=== PATIENT | male | born 1965 | race Caucasian/White ===

== ENCOUNTER → 2024-01-29 10:46 | Outpatient (REF) | payer OTHER, SELFPAY | LOC: RAD 10:46 | PROVIDERS: ATTENDING PHYSICIAN Nurse Practitioner Adult Health; FAMILY PHYSICIAN Family Medicine | DX: M79.675 Pain in left toe(s) (principal) | CPT/HCPCS: 73660 ==

== ENCOUNTER → 2024-06-02 09:39 | Outpatient (REF) | payer MEDICARE, SELFPAY ==
[2024-06-02 10:58] LABS: % Basophils 0.7 % (0-2); % Eosinophils 2.7 % (0-6); % Immature Granulocytes 0.5 % (0-0.5); % Lymphocytes 15.7 % (20.5-51.1); % Monocytes 5.3 % (1.7-9.3); % Neutrophils 75.1 % (42.2-75.2); Absolute Basophils 0.1 10^3/uL (0-0.2); Absolute Eosinophils 0.3 10^3/uL (0-0.7); Absolute Immature Granulocytes 0.1 10^3/uL (0-0.05); Absolute Lymphocytes 1.6 10^3/uL (1.2-3.4); Absolute Monocytes 0.6 10^3/uL (0.1-0.6); Absolute Neutrophils 7.9 10^3/uL (1.4-6.5); Hematocrit 43.3 % (39.0-52.0); Hemoglobin 14.7 g/dL (13.0-18.0); Mean Corp Hgb Conc. 33.9 g/dL (33.0-37.0); Mean Corpuscular Hgb 31.3 pg (27.0-31.0); Mean Corpuscular Volume 92.3 fL (80.0-94.0); Mean Platelet Volume 11.5 fL (7.4-10.4); Nucleated Red Blood Cells % 0 % (-); Platelet Count 172 10^3/uL (130-400); Red Blood Cell Count 4.69 10^6/uL (4.70-6.10); Red Cell Dist. Width 13.1 % (11.5-14.5); White Blood Cell Count 10.5 10^3/uL (4.8-10.8)
[2024-06-02 11:32] LABS: C-Reactive Protein < 5.00 mg/L (0.0-10.00)
[2024-06-02 12:05] LABS: PSA, Total - Screen 0.71 ng/ml (0.0-4.0); TSH 2.61 uIU/ml (0.47-4.68); TSH Reflex To Free T4 2.61 uIU/ml (0.47-4.68)
[2024-06-02 12:06] LABS: Calcium 9.3 mg/dl (8.4-10.2)
[2024-06-02 12:08] LABS: Ferritin 56.7 ng/ml (17.9-464.0)
[2024-06-02 12:30] LABS: Uric Acid 4.5 mg/dl (3.5-8.5)
[2024-06-02 12:45] LABS: Erythrocyte Sed Rate 4 mm/hour (0-20)
[2024-06-04 10:47] LABS: Intact PTH 65.6 pg/ml (13.6-85.8)
== END ==
LOC: REG 09:39
PROVIDERS: ATTENDING PHYSICIAN Physician Assistant; FAMILY PHYSICIAN Nurse Practitioner Family
DX: E03.9 Hypothyroidism, unspecified (principal); E20.9 Hypoparathyroidism, unspecified; M10.9 Gout, unspecified; M79.675 Pain in left toe(s); Z51.81 Encounter for therapeutic drug level monitoring; Z00.00 Encounter for general adult medical examination without abnormal findings; Z12.5 Encounter for screening for malignant neoplasm of prostate
CPT/HCPCS: 36415; 82728; 83970; 84443; 84550; 85025; 85652; 86140; G0103

== ENCOUNTER → 2024-12-05 15:07 | Outpatient (REF) | payer MEDICARE, SELFPAY ==
[2024-12-05 16:07] LABS: Hematocrit 44.9 % (39.0-52.0); Hemoglobin 15.6 g/dL (13.0-18.0); Mean Corp Hgb Conc. 34.7 g/dL (33.0-37.0); Mean Corpuscular Volume 89.8 fL (80.0-94.0); Nucleated Red Blood Cells % 0 % (-); Platelet Count 176 10^3/uL (130-400); Red Cell Dist. Width 12.7 % (11.5-14.5)
[2024-12-05 16:37] LABS: ALT (SGPT) 29 U/L (0-50); AST (SGOT) 22 U/L (17-59); Albumin 4.3 g/dl (3.5-5.0); Alkaline Phosphatase 89 U/L (38-126); Blood Urea Nitrogen 10 mg/dl (9-20); Calcium 8.8 mg/dl (8.4-10.2); Carbon Dioxide 27 mmol/L (22-30); Chloride 106 mmol/L (98-107); Glucose 89 mg/dl (70-99); Potassium 4.1 mmol/L (3.5-5.1); Sodium 141 mmol/L (135-145); Total Protein 6.9 g/dl (6.3-8.2); eGFR > 60.00
== END ==
LOC: RAD 15:07
PROVIDERS: ATTENDING PHYSICIAN Nurse Practitioner Adult Health; FAMILY PHYSICIAN Family Medicine
DX: R31.0 Gross hematuria (principal)
CPT/HCPCS: 36415; 74178; 80053; 84153; 84154; 85025; Q9967

== ENCOUNTER → 2024-12-22 07:04 | Outpatient (REF) | payer MEDICARE, SELFPAY | LOC: RAD 07:04 | PROVIDERS: ATTENDING PHYSICIAN Family Medicine | DX: R91.1 Solitary pulmonary nodule (principal) | CPT/HCPCS: 71260; Q9967 ==

== ENCOUNTER 2024-12-28 06:22 | Day surgery (SDC) | payer MEDICARE, SELFPAY ==
[2024-12-19 14:20] VITALS: BMI 33.9
[2024-12-28] VITALS (8 sets, daily range): BP systolic 141–179; BP diastolic 78–93; BMI 33.9
[2024-12-28] MEDS: NORMOSOL-R/PLASMALYTE-A 1000 IV (10:33)
--- NOTE | 2024-12-28 12:34 | SUR.PHASEI ---
Rec'd sleepy on stretcher with HOb elevated low fowlers, oriented x 3 by RN, reassured, positioned for comfort, denies c/o
--- NOTE | 2024-12-28 12:50 | SUR.PHASEI ---
More alert, denies c/o
== END 2024-12-28 13:49 | disposition home or self-care (01) ==
LOC: SDS 06:22
PROVIDERS: ATTENDING PHYSICIAN Specialist; FAMILY PHYSICIAN Family Medicine
DX: N20.1 Calculus of ureter (principal)
CPT/HCPCS: 52356; 36415; 74018; 76000; 93005; C2617